=== PATIENT | female | born 1955 ===

== ENCOUNTER 2018-04-29 20:54 | Emergency (ER) | payer OTHER ==
[2018-04-29 21:01] VITALS: BP 137/57
[2018-04-29] MEDS ORDERED: KETOROLAC 60 MG/2 ML VIAL IVP STA (21:09)
[2018-04-29] MEDS ORDERED: SODIUM CHLORIDE 0.9% 1,000 ML IV ONE (21:09)
--- NOTE | 2018-04-29 21:10 | ED Physician Documentation ---
PD HPI FEMALE - Stated complaint Stated Complaint: BACK PX - Chief complaint Chief Complaint: Abd Pain - History obtained from History obtained from: Patient, Family - History of Present Illness Timing - onset: How many days ago (4) Timing - details: Gradual onset, Still present Associated symptoms: Dysuria, Other (flank pain) Similar symptoms before: Work up / diagnostics, Treatment Recently seen: Clinic - Additional information Additional information: Patient is a 62 year old female who is presenting to the emergency department for flank pain. Patient states that she was recently diagnosed with a urinary tract infection and a kidney stone. Patient reports that she is supposed to follow up with her urologist tomorrow. patient stated that she did not have time to fill her prescription for antibiotics. Review of Systems Ten Systems: 10 systems reviewed and negative Constitutional: denies: Fever, Chills : reports: Frequency. denies: Dysuria Musculoskeletal: reports: Back pain PD PAST MEDICAL HISTORY - Past Medical History Endocrine/Autoimmune: Type 2 diabetes Musculoskeletal: Scoliosis - Past Surgical History Past Surgical History: Yes /[employer]: Hysterectomy - Present Medications Home Medications: Ambulatory Orders Medication Instructions Recorded Confirmed Doxycycline Hyclate DAILY 02/21/15 02/21/15 metFORMIN [Glucophage] 500 mg PO BID 02/21/15 02/21/15 - Allergies Allergies/Adverse Reactions: Allergies Allergy/AdvReac Type Severity Reaction Status Date / Time No Known Drug Allergies Allergy Verified 02/21/15 19:52 - Social History Does the pt smoke?: No Smoking Status: Never smoker Does the pt drink ETOH?: Yes - Immunizations Immunizations are current?: Yes - POLST Patient has POLST: No PD ED PE NORMAL - Vitals Vital signs reviewed: Yes - General General: Alert and oriented X 3 - HEENT HEENT: Atraumatic - Cardiac Cardiac: RRR - Respiratory Respiratory: No respiratory distress - Abdomen Abdomen: Soft, Non distended - Derm Derm: Normal color, Warm and dry - Extremities Extremities: No deformity - Neuro Neuro: Alert and oriented X 3, No motor deficit, Normal speech Eye Opening: Spontaneous PD ED PE EXPANDED - General General: Alert, In Pain - Back Back: CVA TTP right, CVA TTP left Results - Vitals Vitals: Vital Signs - 24 hr 04/29/18 20:58 Temperature 36.7 C Heart Rate 88 Respiratory 20 Rate Blood Pressure 137/57 H O2 Saturation 100 Oxygen O2 Source Room air - Labs Labs: Laboratory Tests 04/29/18 04/29/18 04/29/18 21:27 21:27 21:27 WBC 8.0 RBC 3.60 L Hgb 12.3 Hct 34.9 L MCV 96.8 MCH 34.0 H MCHC 35.1 RDW 12.5 Plt Count 216 MPV 8.8 Neut # (Auto) 4.5 Lymph # (Auto) 2.5 [place] # (Auto) 0.7 Eos # (Auto) 0.3 Baso # (Auto) 0.1 Absolute Nucleated RBC 0.01 Nucleated RBC % 0.1 Sodium 132 L Potassium 3.6 Chloride 97 L Carbon Dioxide 25 Anion Gap 10.0 BUN 21 H Creatinine 0.8 Estimated GFR (MDRD) 73 L Glucose 221 H Lactic Acid 2.2 Calcium 9.8 Total Bilirubin 0.6 AST 30 ALT 19 Alkaline Phosphatase 71 Total Protein 7.7 Albumin 4.6 Globulin 3.1 Albumin/Globulin Ratio 1.5 Lipase 41 Urine Color Urine Clarity Urine pH Ur Specific Staley Urine Protein Urine Glucose (UA) Urine Ketones Urine Occult Blood Urine Nitrite Urine Bilirubin Urine Urobilinogen Ur Leukocyte Esterase Urine RBC Urine WBC Ur Squamous Epith Cells Urine Bacteria Ur Microscopic Review Urine Culture Comments 04/29/18 21:29 WBC RBC Hgb Hct MCV MCH MCHC RDW Plt Count MPV Neut # (Auto) Lymph # (Auto) [place] # (Auto) Eos # (Auto) Baso # (Auto) Absolute Nucleated RBC Nucleated RBC % Sodium Potassium Chloride Carbon Dioxide Anion Gap BUN Creatinine Estimated GFR (MDRD) Glucose Lactic Acid Calcium Total Bilirubin AST ALT Alkaline Phosphatase Total Protein Albumin Globulin Albumin/Globulin Ratio Lipase Urine Color LT. YELLOW Urine Clarity HAZY Urine pH 6.0 Ur Specific [place]aley 1.015 Urine Protein NEGATIVE Urine Glucose (UA) NEGATIVE Urine Ketones NEGATIVE Urine Occult Blood SMALL H Urine Nitrite POSITIVE H Urine Bilirubin NEGATIVE Urine Urobilinogen 0.2 (NORMAL) Ur Leukocyte Esterase SMALL H Urine RBC None Seen Urine WBC 11-25 H Ur Squamous Epith Cells FEW Squamous Urine Bacteria Many H Ur Microscopic Review INDICATED Urine Culture Comments INDICATED PD MEDICAL DECISION MAKING - ED course Complexity details: reviewed old records, reviewed results, re-evaluated patient , considered differential, d/w patient ED course: patient was seen and examined at bedside. IV access was gained and labs were drawn. urine was collected. patient was started on a fluid bolus and treated with toradol. Patient's urinalysis was consistent with urinary tract infection. Patient was treated with a gram of rocephin. Upon re-evaluation patient stated that she was still in pain and was treated with iv lidocaine with good relief. Patient stated she needed to urinate and her fluids were stopped. patient subsequently eloped from the hospital. - Sepsis Event Vital Signs: Vital Signs - 24 hr 04/29/18 20:58 Temperature 36.7 C Heart Rate 88 Respiratory 20 Rate Blood Pressure 137/57 H O2 Saturation 100 Oxygen O2 Source Room air Departure - Departure Disposition: ED Elope Clinical Impression: Urinary tract infection Condition: Good Discharge Date/Time: 04/29/18 23:18
[2018-04-29 21:32] LABS: BILIRUBIN,URINE NEGATIVE (NEGATIVE); GLUCOSE, URINE (UA) NEGATIVE (NEGATIVE); KETONES,URINE (UA) NEGATIVE (NEGATIVE); LEUKOCYTE ESTERASE, URINE SMALL (NEGATIVE); NITRITE,URINE POSITIVE (NEGATIVE); OCCULT BLOOD,URINE SMALL (NEGATIVE); PROTEIN,URINE NEGATIVE (NEGATIVE); UROBILINOGEN,URINE 0.2 (NORMAL) E.U./dL (NORMAL)
[2018-04-29 21:34] LABS: CLARITY,URINE HAZY (CLEAR)
[2018-04-29 21:34] LABS: BASOPHILS # (AUTO) 0.1 10^3/uL (0.0-0.1); BASOPHILS % (AUTO) 0.9 %; EOSINOPHILS # (AUTO) 0.3 10^3/uL (0.0-0.7); EOSINOPHILS % (AUTO) 3.6 %; HGB - HEMOGLOBIN 12.3 g/dL (12.0-16.0); LYMPHOCYTES # (AUTO) 2.5 10^3/uL (1.5-3.5); LYMPHOCYTES % (AUTO) 30.8 %; MEAN CORPUSCULAR HGB CONC 35.1 g/dL (32.0-36.0); MEAN CORPUSCULAR VOLUME 96.8 fL (81.0-99.0); MEAN PLATELET VOLUME 8.8 fL (7.9-10.8); MONOCYTES # (AUTO) 0.7 10^3/uL (0.0-1.0); MONOCYTES % (AUTO) 8.7 %; NEUTROPHILS # (AUTO) 4.5 10^3/uL (1.5-6.6); PLT - PLATELET COUNT 216 10^3/uL (130-450); RED CELL DISTRIBUTION WIDTH 12.5 % (12.0-15.0)
[2018-04-29 21:41] LABS: BACTERIA,URINE Many /HPF (None Seen); RBC,URINE None Seen /HPF (0-5); SQUAMOUS EPITHELIAL CELL,UR FEW Squamous (<= Few)
[2018-04-29 21:45] LABS: ALBUMIN 4.6 g/dL (3.2-5.5); ALBUMIN/GLOBULIN RATIO 1.5 (1.0-2.2); BILIRUBIN,TOTAL 0.6 mg/dL (0.2-1.0); CALCIUM 9.8 mg/dL (8.5-10.3); CREATININE 0.8 mg/dL (0.4-1.0); TOTAL PROTEIN 7.7 g/dL (6.7-8.2)
[2018-04-29] MEDS ORDERED: cefTRIAXone 1 GM in SODIUM CHLORIDE 0.9% MINIBAG 100 ML IV STA (21:47)
[2018-04-29] MEDS ORDERED: SODIUM CHLORIDE 0.9% IV STA (21:53)
[2018-04-29] MEDS ORDERED: LIDOCAINE MPF 2% IV STA (21:53)
== END 2018-04-29 23:18 | disposition left against medical advice (07) ==
LOC: ED 20:54
DX: N39.0 Urinary tract infection, site not specified (principal); E11.9 Type 2 diabetes mellitus without complications; Z79.84 Long term (current) use of oral hypoglycemic drugs; Z91.14 Patient's other noncompliance with medication regimen
CPT/HCPCS: 36415; 80053; 81001; 83605; 83690; 85025; 87086; 96365; 96368; 96375; 99283; J7040; 81003; 87077; 87181